=== PATIENT | female | born 1935 | race Caucasian/White ===

== ENCOUNTER → 2016-08-11 | Outpatient (CLI) | payer MEDICARE, OTHER ==
[~2016-08-11] MED LIST: ALDACTONE DPS25 MG PO; ASPIRIN EC81 MG PO; BYSTOLIC5 MG PO; CULTURELLE1 CAP PO; DEMADEX DPS100 MG PO; DULCOLAX-DPS5 MG PO; DUONEB DPS3 ML IH; HYDROCODONE 10M10 MG PO; KLOR-CON20 MEQ PO; LOVENOX DP40 MG/0.4 SQ; MAALOX DPS30 ML PO; MENTHOL TP; MUCINEX600 MG PO; NITROSTAT0.4 MG SL; NORVASC DPS10 MG PO; NYSTATIN CREAM15 GM TP; OCEAN NASAL MIS45 ML NS; OMNICEF DPS300 MG PO; ORGAN-I NR200 MG PO; PEPCID DPS20 MG PO; SENOKOT S1 TAB PO; SYNTHROID DP0.125 MG PO; TAMIFLU75 MG PO; XANAX DPS0.5 MG PO
--- NOTE | ~2016-08-11 | ECH ---
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 The estimated left ventricular ejection fraction is 60%. Mild concentric left ventricular hypertrophy. Diastolic assessment reveals Grade I diastolic dysfunction. Mild tricuspid regurgitation by color Doppler. There is mild pulmonary hypertension. The pulmonary pressure (RVSP) is 36 mmHg. The ascending aorta appears mildly dilated. The maximum diameter measures 3.8 cm. Procedure Type of Study TTE procedure:Echo Complete SF. Procedure Date Date: 08/11/2016 Start: 01:10 Technical Quality: Fair due to patient immobility. Indications:Congestive heart failure and Hypertension. Appropriate Use Criteria: 9 Height: 60 inches Weight: 192 pounds BSA: 1.83 m Rhythm: Within normal limits HR: 75 bpm BP: 168/81 mmHg M-Mode/2D Measurements LV Diastolic Dimension: 3.91 cm LV Systolic Dimension: 2.56 cm LV Septum Diastolic: 1.21 cm LV PW Diastolic: 1.25 cm AO Root Dimension: 2.95 cm Cardiac Output: 5.69 l/min LA Dimension: 3.35 cm Cardiac Index: 3.11 l/min*m RV Diastolic Dimension: 3.08 cm LA volume index: 23 ml/m LVOT: 2 cm LVOT VTI: 24.15 cm LV Stroke volume: 75.83 ml LV Stroke volume index: 41.44 ml/m Doppler Measurements AV Peak Velocity: 1.54 m/s MV Peak E-Wave: 0.68 m/s AV Peak Gradient: 9.49 mmHg MV Peak A-Wave: 0.87 m/s AV Mean Gradient: 4.05 mmHg MV E/A Ratio: 0.78 LVOT Peak Velocity: 1.02 m/s MV P1/2t: 80.9 msec AV Area (Continuity):2.81 cm MV Deceleration Time: 277.6 msec TR Velocity:2.77 m/s MV Area (PHT): 2.72 cm TR Gradient:30.7 mmHg PV Peak Velocity: 0.9 m/s Estimated RAP:5 mmHg PV Peak Gradient: 3.25 mmHg Estimated RVSP: 36 mmHg Estimated PASP: 35.7 mmHg E' Septal Velocity: 0.06 m/s A' Septal Velocity: 0.09 m/s E' Lateral Velocity: 0.09 m/s A' Lateral Velocity: 0.12 m/s Findings Left Ventricle The left ventricle is normal in size . Mild concentric left ventricular hypertrophy. Diastolic assessment reveals Grade I diastolic dysfunction. Right Ventricle Right ventricle not well visualized. Left Atrium Normal left atrial size. The interatrial septum appears aneurysmal. There is no evidence of patent foramen ovale or atrial septal defect by color Doppler. Right Atrium Right atrium not well visualized. Mitral Valve Normal mitral valve structure and function. Mild mitral annular calcification. Aortic Valve Normal aortic valve structure and function. Tricuspid Valve Normal appearing tricuspid valve. Mild tricuspid regurgitation by color Doppler. There is mild pulmonary hypertension. The pulmonary pressure (RVSP) is 36 mmHg. Pulmonic Valve Normal pulmonic valve structure and function. Pericardial Effusion No evidence of pericardial effusion. Miscellaneous The ascending aorta appears mildly dilated. The maximum diameter measures 3.8 cm. Pleural Effusion No evidence of pleural effusion. Signature
== END | disposition home or self-care (01) ==
LOC: CARD 12:54
DX: I51.89 Other ill-defined heart diseases (principal); I27.2 Other secondary pulmonary hypertension; I51.7 Cardiomegaly; I07.1 Rheumatic tricuspid insufficiency

== ENCOUNTER → 2016-08-19 | Outpatient (CLI) | payer MEDICARE, OTHER | END | disposition home or self-care (01) | LOC: RAD.S 10:06 | DX: Z12.31 Encounter for screening mammogram for malignant neoplasm of breast (principal); C50.912 Malignant neoplasm of unspecified site of left female breast; R92.1 Mammographic calcification found on diagnostic imaging of breast ==